=== PATIENT | female | born 1935 | race Caucasian/White ===

== ENCOUNTER 2019-03-30 15:08 | Emergency (ER) | payer OTHER ==
[~2019-03-30] VITALS: Ht 167.6 cm; Wt 74.8 kg
[2019-03-30 16:01] LABS: BASOPHILS ABSOLUTE AUTO 0.06 K/mm3 (0.00-0.23); BASOPHILS PERCENT AUTO 1 % (0-2); EOSINOPHILS ABSOLUTE AUTO 0.33 K/mm3 (0.00-0.68); EOSINOPHILS PERCENT AUTO 3 % (0-6); Hematocrit 39.2 % (33.0-51.0); Hemoglobin 11.2 g/dL (11.5-16.0); IMMATURE GRAN ABSOLUTE AUTO 0.04 K/mm3 (0.00-0.10); IMMATURE GRAN PERCENT AUTO 0 % (0-1); LYMPHOCYTES ABSOLUTE AUTO 1.27 K/mm3 (0.84-5.20); LYMPHOCYTES PERCENT AUTO 12 % (21-46); MONOCYTES ABSOLUTE AUTO 1.17 K/mm3 (0.16-1.47); MONOCYTES PERCENT AUTO 11 % (4-13); Mean Corpuscular HGB Conc 28.6 g/dL (31.5-36.5); Mean Corpuscular Volume 73 fL (80-100); Mean Platelet Volume 10.9 fL (9.1-12.4); NEUTROPHILS ABSOLUTE AUTO 7.62 K/mm3 (1.96-9.15); NEUTROPHILS PERCENT AUTO 73 % (41-73); Platelet Count 337 K/mm3 (150-400); RDW Coefficient Variation 20.4 % (11.7-14.2); RDW Standard Deviation 52.4 fL (35.1-46.3); Red Blood Cell Count 5.34 M/mm3 (3.80-5.20); White Blood Cell Count 10.49 K/mm3 (4.00-11.30)
[2019-03-30 16:18] LABS: Alanine Aminotransfer (ALT/SGP 13 U/L (12-78); Albumin, Blood 2.7 g/dL (3.4-5.0); Albumin/Globulin Ratio 0.7 (0.8-1.8); Alk Phos 92 U/L (50-136); Anion Gap 3 mmol/L (6-16); Aspartate Aminotrans (AST/SGOT 10 U/L (12-37); Bilirubin, Total 0.3 mg/dL (0.1-1.0); Blood Urea Nitrogen 11 mg/dL (8-24); Bun/Creatinine Ratio 14.4 (12.0-20.0); CO2, Blood 27 mmol/L (21-32); Calcium, Blood 8.4 mg/dL (8.5-10.1); Chloride, Blood 109 mmol/L (98-108); Creatinine, Blood 0.76 mg/dL (0.40-1.00); Globulin, Blood 4.1 g/dL (2.2-4.0); Glomerular Filtration Rate >60 (60-); Glucose, Blood 107 mg/dL (70-99); Potassium, Blood 3.3 mmol/L (3.5-5.5); Sodium, Blood 139 mmol/L (136-145); Total Protein, Blood 6.8 g/dL (6.4-8.2)
[2019-03-30 16:40] LABS: Influenza A Negative (NEGATIVE); Influenza B Negative (NEGATIVE)
[2019-03-30] MEDS ORDERED: Prednisone20 MG PO (17:44)
[2019-03-30] MEDS ORDERED: ALBU90OI INH (17:44)
== END 2019-03-30 18:24 | disposition home or self-care (01) ==
LOC: ER 15:08
PROVIDERS: Physician Assistant
DX: J20.8 Acute bronchitis due to other specified organisms (principal)
CPT/HCPCS: 71046; 80053; 85025; 87804; 94640; 96374; 99284-25; J2930

== ENCOUNTER 2019-05-14 20:47 | Emergency (ER) | payer OTHER ==
[~2019-05-14] VITALS: Ht 162.6 cm; Wt 90.7 kg
[~2019-05-14 20:47] MED LIST: ALBU90OI INH; Prednisone20 MG PO
[2019-05-14 22:27] LABS: BASOPHILS ABSOLUTE AUTO 0.08 K/mm3 (0.00-0.23); BASOPHILS PERCENT AUTO 1 % (0-2); EOSINOPHILS ABSOLUTE AUTO 0.39 K/mm3 (0.00-0.68); EOSINOPHILS PERCENT AUTO 4 % (0-6); Hematocrit 39.4 % (33.0-51.0); Hemoglobin 11.3 g/dL (11.5-16.0); IMMATURE GRAN ABSOLUTE AUTO 0.02 K/mm3 (0.00-0.10); IMMATURE GRAN PERCENT AUTO 0 % (0-1); LYMPHOCYTES ABSOLUTE AUTO 1.79 K/mm3 (0.84-5.20); LYMPHOCYTES PERCENT AUTO 17 % (21-46); MONOCYTES ABSOLUTE AUTO 1.06 K/mm3 (0.16-1.47); MONOCYTES PERCENT AUTO 10 % (4-13); Mean Corpuscular HGB 20.7 pg (26.0-34.0); Mean Corpuscular HGB Conc 28.7 g/dL (31.5-36.5); Mean Corpuscular Volume 72 fL (80-100); Mean Platelet Volume 10.6 fL (9.1-12.4); NEUTROPHILS ABSOLUTE AUTO 7.02 K/mm3 (1.96-9.15); NEUTROPHILS PERCENT AUTO 68 % (41-73); Platelet Count 437 K/mm3 (150-400); RDW Coefficient Variation 21.1 % (11.7-14.2); RDW Standard Deviation 53.7 fL (35.1-46.3); Red Blood Cell Count 5.45 M/mm3 (3.80-5.20); White Blood Cell Count 10.36 K/mm3 (4.00-11.30)
[2019-05-14 22:45] LABS: Alanine Aminotransfer (ALT/SGP 13 U/L (12-78); Albumin/Globulin Ratio 0.8 (0.8-1.8); Alk Phos 93 U/L (50-136); Anion Gap 5 mmol/L (6-16); Aspartate Aminotrans (AST/SGOT 21 U/L (12-37); Bilirubin, Total 0.3 mg/dL (0.1-1.0); Blood Urea Nitrogen 9 mg/dL (8-24); Bun/Creatinine Ratio 12.5 (12.0-20.0); CO2, Blood 27 mmol/L (21-32); Calcium, Blood 8.4 mg/dL (8.5-10.1); Chloride, Blood 110 mmol/L (98-108); Creatinine, Blood 0.72 mg/dL (0.40-1.00); Glomerular Filtration Rate >60 (60-); Glucose, Blood 93 mg/dL (70-99); Potassium, Blood 3.8 mmol/L (3.5-5.5); Sodium, Blood 142 mmol/L (136-145)
[2019-05-14] MEDS ORDERED: Keflex500 MG PO (23:40)
== END 2019-05-14 23:49 | disposition home or self-care (01) ==
LOC: ER 20:47
PROVIDERS: Physician Assistant
DX: L03.116 Cellulitis of left lower limb (principal); H40.9 Unspecified glaucoma; Z79.52 Long term (current) use of systemic steroids
CPT/HCPCS: 36415; 80053; 85025; 93971; 96365; 99284-25; J0696

== ENCOUNTER 2019-05-31 19:22 | Inpatient (IN) | payer OTHER ==
[~2019-05-31] VITALS: Ht 170.2 cm; Wt 82.4 kg
[~2019-05-31 19:22] MED LIST changes: +Keflex500 MG PO
[2019-05-31 19:48] LABS: Source, Urine Catheter
[2019-05-31 19:51] LABS: Blood, Urine 5+ (Neg); Glucose Qualitative, Urine Neg (Neg); Ketones, Urine 1+ (Neg); Leukocyte Esterase, Urine 2+ (Neg); Nitrite, Urine Neg (Neg); Protein, Urine 3+ (Neg); Specific Gravity, Urine 1.015 (1.003-1.022); Urobilinogen, Urine 1+ (Normal); pH, Urine 6.5 (5.0-8.0)
[2019-05-31 19:57] LABS: Appearance, Urine Hazy (Clear); Bilirubin, Urine 1+ (Neg); Color, Urine Amber (P-Yellow)
[2019-05-31 19:58] LABS: Red Blood Cells, Urine TNTC /hpf (0-2); White Blood Cells, Urine 25-50 /hpf (0-5)
[2019-05-31 19:59] LABS: Bacteria Many /hpf; Mucus Mod (0-Heavy); Squamous Epithelial Cells Few /hpf (Few)
[2019-05-31 20:21] LABS: BASOPHILS ABSOLUTE AUTO 0.09 K/mm3 (0.00-0.23); BASOPHILS PERCENT AUTO 1 % (0-2); EOSINOPHILS ABSOLUTE AUTO 0.12 K/mm3 (0.00-0.68); EOSINOPHILS PERCENT AUTO 1 % (0-6); Hematocrit 38.2 % (33.0-51.0); Hemoglobin 11.2 g/dL (11.5-16.0); IMMATURE GRAN ABSOLUTE AUTO 0.11 K/mm3 (0.00-0.10); IMMATURE GRAN PERCENT AUTO 1 % (0-1); LYMPHOCYTES ABSOLUTE AUTO 1.51 K/mm3 (0.84-5.20); LYMPHOCYTES PERCENT AUTO 8 % (21-46); MONOCYTES ABSOLUTE AUTO 1.92 K/mm3 (0.16-1.47); MONOCYTES PERCENT AUTO 11 % (4-13); Mean Corpuscular HGB 21.5 pg (26.0-34.0); Mean Corpuscular HGB Conc 29.3 g/dL (31.5-36.5); Mean Corpuscular Volume 73 fL (80-100); Mean Platelet Volume 11.5 fL (9.1-12.4); NEUTROPHILS ABSOLUTE AUTO 14.48 K/mm3 (1.96-9.15); NEUTROPHILS PERCENT AUTO 79 % (41-73); Platelet Count 351 K/mm3 (150-400); RDW Coefficient Variation 20.4 % (11.7-14.2); RDW Standard Deviation 52.1 fL (35.1-46.3); Red Blood Cell Count 5.22 M/mm3 (3.80-5.20); White Blood Cell Count 18.23 K/mm3 (4.00-11.30)
[2019-05-31 20:32] LABS: Alanine Aminotransfer (ALT/SGP 12 U/L (12-78); Albumin/Globulin Ratio 0.8 (0.8-1.8); Alk Phos 74 U/L (50-136); Anion Gap 4 mmol/L (6-16); Aspartate Aminotrans (AST/SGOT 11 U/L (12-37); Bilirubin, Total 0.8 mg/dL (0.1-1.0); Blood Urea Nitrogen 9 mg/dL (8-24); Bun/Creatinine Ratio 11.1 (12.0-20.0); CO2, Blood 28 mmol/L (21-32); Calcium, Blood 8.6 mg/dL (8.5-10.1); Chloride, Blood 109 mmol/L (98-108); Creatinine, Blood 0.81 mg/dL (0.40-1.00); Globulin, Blood 3.9 g/dL (2.2-4.0); Glomerular Filtration Rate >60 (60-); Glucose, Blood 104 mg/dL (70-99); Potassium, Blood 3.3 mmol/L (3.5-5.5); Sodium, Blood 141 mmol/L (136-145); Total Protein, Blood 6.9 g/dL (6.4-8.2)
[2019-05-31 20:33] LABS: International Normalized Ratio 1.07; Prothrombin Time Results 11.4 Sec (9.7-11.5)
[2019-06-01 02:22] LABS: Adenovirus Not Detected (NOT DETECT); Bordetella pertussis Not Detected (NOT DETECT); Chlamydophila pneumoniae Not Detected (NOT DETECT); Coronavirus 229E Not Detected (NOT DETECT); Coronavirus HKU1 Not Detected (NOT DETECT); Coronavirus NL63 Not Detected (NOT DETECT); Coronavirus OC43 Not Detected (NOT DETECT); Human Metapneumovirus Not Detected (NOT DETECT); Human Rhinovirus/Enterovirus Not Detected (NOT DETECT); Influenza A/2009-H1 Not Detected (NOT DETECT); Influenza A/H1 Not Detected (NOT DETECT); Influenza A/H3 Not Detected (NOT DETECT); Influenza B Not Detected (NOT DETECT); Mycoplasma pneumoniae Not Detected (NOT DETECT); Parainfluenza Virus 1 Not Detected (NOT DETECT); Parainfluenza Virus 2 Not Detected (NOT DETECT); Parainfluenza Virus 3 Not Detected (NOT DETECT); Parainfluenza Virus 4 Not Detected (NOT DETECT); Respiratory Syncytial Virus Not Detected (NOT DETECT)
--- NOTE | 2019-06-01 04:03 | NUR ---
GAME MANAGER SUMMARY PT NEW ADMIT FROM ER. ARRIVED TO UNIT AT 2355 VIA STRETCHER. PT INTRODUCED TO ROOM AND STAFF. PT ARRIVED TO UNIT WITH NS RUNNING WIDE OPEN FINISHING UP WITH THE SEPTIC PROTOCOL BOULUS. LUNG SOUNDS DIM AND CLEAR THOUGHTOUT LUNG RAM. 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 PT VERY [place]. INCONT OF BOWEL AND BLADDER. TRIES TO GET UP A FEW TIMES OUT OF BED BUT ONCE REDIRECTED, PT WILL LAY BACK DOWN. SLEPT WELL TONIGHT. BP STARTED TO TREND DOWN, HR TACHY. HOSPITALIST DR. MURPHY NOTIFIED. LR INFUSION AT 100ML/HR ORDERED. CALL LIGHT WITHIN REACH. BED IN LOWEST POSITION. WILL CONTINUE TO MONITOR.
[2019-06-01 05:26] LABS: BASOPHILS ABSOLUTE AUTO 0.07 K/mm3 (0.00-0.23); BASOPHILS PERCENT AUTO 0 % (0-2); EOSINOPHILS ABSOLUTE AUTO 0.16 K/mm3 (0.00-0.68); EOSINOPHILS PERCENT AUTO 1 % (0-6); Hematocrit 34.4 % (33.0-51.0); Hemoglobin 9.9 g/dL (11.5-16.0); IMMATURE GRAN ABSOLUTE AUTO 0.09 K/mm3 (0.00-0.10); IMMATURE GRAN PERCENT AUTO 1 % (0-1); LYMPHOCYTES ABSOLUTE AUTO 1.29 K/mm3 (0.84-5.20); LYMPHOCYTES PERCENT AUTO 8 % (21-46); MONOCYTES ABSOLUTE AUTO 1.62 K/mm3 (0.16-1.47); MONOCYTES PERCENT AUTO 10 % (4-13); Mean Corpuscular HGB 21.1 pg (26.0-34.0); Mean Corpuscular HGB Conc 28.8 g/dL (31.5-36.5); Mean Corpuscular Volume 73 fL (80-100); Mean Platelet Volume 10.8 fL (9.1-12.4); NEUTROPHILS ABSOLUTE AUTO 12.81 K/mm3 (1.96-9.15); NEUTROPHILS PERCENT AUTO 80 % (41-73); Platelet Count 302 K/mm3 (150-400); RDW Standard Deviation 52.9 fL (35.1-46.3); Red Blood Cell Count 4.69 M/mm3 (3.80-5.20); White Blood Cell Count 16.04 K/mm3 (4.00-11.30)
[2019-06-01 05:49] LABS: Anion Gap 4 mmol/L (6-16); Blood Urea Nitrogen 6 mg/dL (8-24); Bun/Creatinine Ratio 8.4 (12.0-20.0); CO2, Blood 24 mmol/L (21-32); Calcium, Blood 7.7 mg/dL (8.5-10.1); Chloride, Blood 113 mmol/L (98-108); Creatinine, Blood 0.72 mg/dL (0.40-1.00); Glomerular Filtration Rate >60 (60-); Glucose, Blood 100 mg/dL (70-99); Potassium, Blood 3.7 mmol/L (3.5-5.5); Sodium, Blood 141 mmol/L (136-145)
--- NOTE | 2019-06-01 17:12 | NUR ---
SHIFT SUMMARY PT AWAKE AT START OF SHIFT. ABLE TO SIT UP AND FEED HERSELF FOR BREAKFAST. PT IS PLEASANT, BUT [place]. DOES NOT ANS ALL QUESTIONS APPROPRIATELY, SOMETIMES FROM DEMENTIA AND SOMETIMES NOT HEARING CLEARLY. PT IS INCONTINENT OF BOWEL AND BLADDER. PT WAS ALSO ABLE TO WALK WITH PT/OT TO BTHRM AND AROUND HER RM WITH 1P ASSIST USING FWW. PT LATER ASSISTED TO CHAIR AT BS. IVF'S D/C'D AND IV SL. PT LATER PULLED IV OUT. WILL NEED TO REPLACE IV FOR ABX IN AM. PT'S SON CALLED SEVERAL TIMES TODAY TO CHK ON PT. UPDATES GIVEN. PT TO STAY AT LEAST ONE MORE DAY FOR IV ABX AND CX'S TO RETURN TO DETERMINE D/C ABX'S. DR GOMEZ TO CALL SON TOMORROW WITH PLAN OF CARE, AFTER CX'S BACK. PT TOOK A NAP AFTER BREAKFAST AND WOKE CONFUSED, THINKING IT WAS MIDNIGHT. PT'S SON REPORTED THAT IS NORMAL FOR HER AT TIMES. PT SITTING TO CHAIR AT BS AT THIS TIME. NO C/O. CALL LT IN REACH.
[2019-06-02 04:34] LABS: Hematocrit 33.5 % (33.0-51.0); Hemoglobin 9.6 g/dL (11.5-16.0); Mean Corpuscular HGB 20.7 pg (26.0-34.0); Mean Corpuscular HGB Conc 28.7 g/dL (31.5-36.5); Mean Corpuscular Volume 72 fL (80-100); Mean Platelet Volume 10.9 fL (9.1-12.4); Platelet Count 283 K/mm3 (150-400); RDW Coefficient Variation 20.1 % (11.7-14.2); RDW Standard Deviation 51.7 fL (35.1-46.3); Red Blood Cell Count 4.63 M/mm3 (3.80-5.20); White Blood Cell Count 12.28 K/mm3 (4.00-11.30)
[2019-06-02 04:45] LABS: Albumin, Blood 2.2 g/dL (3.4-5.0); Anion Gap 6 mmol/L (6-16); Blood Urea Nitrogen 6 mg/dL (8-24); Bun/Creatinine Ratio 8.8 (12.0-20.0); CO2, Blood 24 mmol/L (21-32); Calcium, Blood 7.8 mg/dL (8.5-10.1); Chloride, Blood 113 mmol/L (98-108); Creatinine, Blood 0.68 mg/dL (0.40-1.00); Glomerular Filtration Rate >60 (60-); Glucose, Blood 87 mg/dL (70-99); Phosphorus, Blood 1.9 mg/dL (2.5-4.9); Potassium, Blood 3.5 mmol/L (3.5-5.5); Sodium, Blood 143 mmol/L (136-145)
--- NOTE | 2019-06-02 06:14 | NUR ---
06/02/19 0600 PT AWAKENED FOR ROUNDS. INCONTINENT OF URINE AND SMEAR OF BROWN BM. CIARA-CARE GIVEN AND REPOSITIONED ON BACK WITH PILLOWS TO ELEVATE SWOLLEN FEET. VITALS STABLE. NO COMPLAINTS EXCEPT FOR WAKING HER UP FOR ROUNDS.
--- NOTE | 2019-06-02 15:14 | NUR ---
Pt is resting in bed upon arrival. Pt is A&OX2 and denies pain. Pt denies anxiety and dyspnea. Pt is pleasantly confused. Offered gentle voice and theapeutic listening. Called and spoke with Pt's son Thaddeus. Updated Thaddeus on plan of care. Plan for Pt's to discharge home with home health. Thaddeus is agreeable. Engaged in therapeutic discussion regarding Advanced Care Planning. Educated Thaddeus on disease process and the importance of devoloping multiple plans with Pt's PCP as the disease process takes it's coarse. Discussed life sustaining measures with Chris and the importance of considering goals and values for life sustaining measures. Offered therapeutic listening and answered questions. No other concerns reported at this time. Thaddeus expressess appreciation of call. Called and spoke with [employer] Coordinator Joy. Discussed case and plan. Palliative Care will remain available.
--- NOTE | 2019-06-02 17:18 | NUR ---
Shift Summary A/Oxself, pleasantly confused. Up in chair for most meals, no c/o pain. Left lower extremity cellulitis seems to be improving, only mild redness and trace swelling noted. 1P c FWW and gait, follows directions well, though NOATAK. Plan is to discharge tomorrow home with HH. Patient has had 2 unformed, mucosy brown stools this shift. Rocephin was just started 2 days ago. No other concerns. Will continue to monitor.
[2019-06-03 04:29] LABS: Hematocrit 33.4 % (33.0-51.0); Hemoglobin 9.8 g/dL (11.5-16.0); Mean Corpuscular HGB 21.3 pg (26.0-34.0); Mean Corpuscular HGB Conc 29.3 g/dL (31.5-36.5); Mean Corpuscular Volume 73 fL (80-100); Mean Platelet Volume 10.8 fL (9.1-12.4); Platelet Count 326 K/mm3 (150-400); RDW Standard Deviation 51.6 fL (35.1-46.3); White Blood Cell Count 10.72 K/mm3 (4.00-11.30)
[2019-06-03 04:49] LABS: Albumin, Blood 2.2 g/dL (3.4-5.0); Anion Gap 4 mmol/L (6-16); Blood Urea Nitrogen 6 mg/dL (8-24); CO2, Blood 28 mmol/L (21-32); Chloride, Blood 111 mmol/L (98-108); Creatinine, Blood 0.67 mg/dL (0.40-1.00); Glomerular Filtration Rate >60 (60-); Glucose, Blood 99 mg/dL (70-99); Phosphorus, Blood 2.5 mg/dL (2.5-4.9); Potassium, Blood 3.6 mmol/L (3.5-5.5); Sodium, Blood 143 mmol/L (136-145)
--- NOTE | 2019-06-03 04:58 | NUR ---
SHIFT SUMMARY PT HAS BEEN PLEASANTLY CONFUSED T/O SHIFT, NO ACUTE CHANGES, NO C/O ANY KIND, PT SLEEPING AT THIS TIME, BLE ELEVATED, CALL LIGHT IN REACH, BED ALARM ACTIVE, WILL CONT TO MONITOR UNTIL REPORT GIVEN TO DAY RN.
[2019-06-03] MEDS ORDERED: ACET325 PO (09:48)
[2019-06-03] MEDS ORDERED: CEFU500T30 PO (09:49)
[2019-06-03] MEDS ORDERED: Vsl#3 Capsule1 EACH PO (09:49)
--- NOTE | 2019-06-03 11:06 | NUR ---
Discharge Summary A/O to self, remains pleasantly confused. Patient discharge to home with HH, transported home via personal vehicle, escorted by w/c by this RN. Discharge paperwork reviewed with patient and son (Thaddeus) at car side. Personal belongings sent home. IV removed. Meds faxed to preferred pharmacy.
== END 2019-06-03 11:55 | disposition home health service (06) | DRG 871 ==
LOC: ER 19:22 → MEDS 23:56 → ENPENDDIS 06-03 09:54 → MEDS 06-03 11:55
PROVIDERS: Internal Medicine; Physician Assistant; ADMIT Family Medicine
DX: A41.51 Sepsis due to Escherichia coli [E. coli] (principal); G92 Toxic encephalopathy; N39.0 Urinary tract infection, site not specified; L03.116 Cellulitis of left lower limb; D63.8 Anemia in other chronic diseases classified elsewhere; E87.6 Hypokalemia; F03.90 Unspecified dementia, unspecified severity, without behavioral disturbance, psychotic disturbance, mood disturbance, and anxiety; H40.9 Unspecified glaucoma; E83.39 Other disorders of phosphorus metabolism
CPT/HCPCS: 0099U; 36415; 70450; 71046; 80048; 80053; 80069; 81001; 83605; 85025; 85027; 85610; 87040; 87077; 87086; 87186; 93005; 93010; 93970; 96361; 96365; 97116; 97162; 97166; 97535; 99285-25; J0696; J1650; J3480; J7030; J7060; J7120

== ENCOUNTER 2020-02-03 07:37 | Inpatient (IN) | payer OTHER ==
[~2020-02-03] VITALS: Ht 165.1 cm; Wt 72.1 kg
[~2020-02-03 07:37] MED LIST changes: +ACET325 PO; +CEFU500T30 PO; +Vsl#3 Capsule1 EACH PO
[2020-02-03 08:14] LABS: Source, Urine Clean Catch
[2020-02-03 08:14] LABS: BASOPHILS ABSOLUTE AUTO 0.03 K/mm3 (0.00-0.23); BASOPHILS PERCENT AUTO 0 % (0-2); EOSINOPHILS ABSOLUTE AUTO 0.03 K/mm3 (0.00-0.68); EOSINOPHILS PERCENT AUTO 0 % (0-6); Hematocrit 47.9 % (33.0-51.0); Hemoglobin 14.4 g/dL (11.5-16.0); IMMATURE GRAN ABSOLUTE AUTO 0.08 K/mm3 (0.00-0.10); IMMATURE GRAN PERCENT AUTO 1 % (0-1); LYMPHOCYTES ABSOLUTE AUTO 0.43 K/mm3 (0.84-5.20); LYMPHOCYTES PERCENT AUTO 3 % (21-46); MONOCYTES ABSOLUTE AUTO 0.41 K/mm3 (0.16-1.47); MONOCYTES PERCENT AUTO 3 % (4-13); Mean Corpuscular HGB 24.3 pg (26.0-34.0); Mean Corpuscular HGB Conc 30.1 g/dL (31.5-36.5); Mean Corpuscular Volume 81 fL (80-100); NEUTROPHILS ABSOLUTE AUTO 13.12 K/mm3 (1.96-9.15); NEUTROPHILS PERCENT AUTO 93 % (41-73); Platelet Count 257 K/mm3 (150-400); RDW Standard Deviation 56.8 fL (35.1-46.3); Red Blood Cell Count 5.93 M/mm3 (3.80-5.20)
[2020-02-03 08:18] LABS: Mean Platelet Volume 10.8 fL (9.1-12.4)
[2020-02-03 08:18] LABS: Bilirubin, Urine Neg (Neg); Blood, Urine 5+ (Neg); Glucose Qualitative, Urine Neg (Neg); Ketones, Urine 3+ (Neg); Leukocyte Esterase, Urine 3+ (Neg); Nitrite, Urine Pos (Neg); Protein, Urine 3+ (Neg); Urobilinogen, Urine 1+ (Normal); pH, Urine 6.5 (5.0-8.0)
[2020-02-03 08:21] LABS: Appearance, Urine Cloudy (Clear); Color, Urine Yellow (P-Yellow)
[2020-02-03 08:27] LABS: Bacteria Many /hpf; Red Blood Cells, Urine TNTC /hpf (0-2); Squamous Epithelial Cells Rare /hpf (Few); White Blood Cells, Urine 25-50 /hpf (0-5)
[2020-02-03 08:30] LABS: Alanine Aminotransfer (ALT/SGP 13 U/L (12-78); Albumin, Blood 3.3 g/dL (3.4-5.0); Albumin/Globulin Ratio 0.7 (0.8-1.8); Alk Phos 106 U/L (50-136); Anion Gap 5 mmol/L (6-16); Aspartate Aminotrans (AST/SGOT 20 U/L (12-37); Bilirubin, Total 0.5 mg/dL (0.1-1.0); Blood Urea Nitrogen 13 mg/dL (8-24); Bun/Creatinine Ratio 17.6 (12.0-20.0); CO2, Blood 29 mmol/L (21-32); Calcium, Blood 9.3 mg/dL (8.5-10.1); Chloride, Blood 106 mmol/L (98-108); Creatinine, Blood 0.74 mg/dL (0.40-1.00); Globulin, Blood 4.5 g/dL (2.2-4.0); Glomerular Filtration Rate >60 (60-); Glucose, Blood 166 mg/dL (70-99); Potassium, Blood 3.7 mmol/L (3.5-5.5); Sodium, Blood 140 mmol/L (136-145); Total Protein, Blood 7.8 g/dL (6.4-8.2)
--- NOTE | 2020-02-03 12:09 | NUR ---
CALLED AND RECIEVED REPORT FROM JOSE J FREY RN, AT 1150. PATIENT TO BE TRANFERED TO ROOM 324.
--- NOTE | 2020-02-03 13:54 | NUR ---
PATIENT ADMITTED TO MEDICAL FLOOR AT 1220. VITALS STABLE. PATIENT VERY [place]. POOR HISTORIAN HOWEVER DID STATE THAT SHE HAS TROUBLE SWALLOWING WHEN I ASKED HER. PATIENT WITNESSED ATTEMPTING TO EAT MEAL AND SHE WAS CHOKING ON THE SMALL AMOUNT SHE ATE. ALSO NOTICE REDNESS BENEATH HER BREASTS AND IN HER GROIN AND ABDOMINAL FOLDS. DR MONTOYA CALLED AND UPDATED ON THESE CONCERNS. PATIENT PLACED NPO PENDING SPEECH EVAL AND NYSTATIN POWDER ORDERED FOR REDNESS. PATIENT IS PLEASANT AND COOPERATIVE. SITUATED IN BED WITH CALL LIGHT IN REACH. WILL CONTINUE TO MONITOR AND PROVIDE CARE NEEDED.
[2020-02-04 05:13] LABS: BASOPHILS ABSOLUTE AUTO 0.05 K/mm3 (0.00-0.23); BASOPHILS PERCENT AUTO 0 % (0-2); EOSINOPHILS ABSOLUTE AUTO 0.13 K/mm3 (0.00-0.68); EOSINOPHILS PERCENT AUTO 1 % (0-6); Hematocrit 40.4 % (33.0-51.0); IMMATURE GRAN ABSOLUTE AUTO 0.04 K/mm3 (0.00-0.10); IMMATURE GRAN PERCENT AUTO 0 % (0-1); LYMPHOCYTES ABSOLUTE AUTO 1.18 K/mm3 (0.84-5.20); LYMPHOCYTES PERCENT AUTO 10 % (21-46); MONOCYTES ABSOLUTE AUTO 1.16 K/mm3 (0.16-1.47); MONOCYTES PERCENT AUTO 10 % (4-13); Mean Corpuscular HGB 24.4 pg (26.0-34.0); Mean Corpuscular HGB Conc 29.7 g/dL (31.5-36.5); Mean Corpuscular Volume 82 fL (80-100); Mean Platelet Volume 11.6 fL (9.1-12.4); NEUTROPHILS ABSOLUTE AUTO 9.17 K/mm3 (1.96-9.15); NEUTROPHILS PERCENT AUTO 78 % (41-73); Platelet Count 194 K/mm3 (150-400); RDW Coefficient Variation 19.4 % (11.7-14.2); RDW Standard Deviation 57.9 fL (35.1-46.3); Red Blood Cell Count 4.91 M/mm3 (3.80-5.20); White Blood Cell Count 11.73 K/mm3 (4.00-11.30)
[2020-02-04 05:28] LABS: Anion Gap 6 mmol/L (6-16); Blood Urea Nitrogen 8 mg/dL (8-24); Bun/Creatinine Ratio 13.3 (12.0-20.0); CO2, Blood 28 mmol/L (21-32); Calcium, Blood 8.1 mg/dL (8.5-10.1); Chloride, Blood 112 mmol/L (98-108); Glomerular Filtration Rate >60 (60-); Glucose, Blood 82 mg/dL (70-99); Potassium, Blood 3.4 mmol/L (3.5-5.5); Sodium, Blood 146 mmol/L (136-145)
--- NOTE | 2020-02-04 06:12 | NUR ---
SHIFT SUMMARY LYING IN LOW FOWLERS WITH EYES CLOSED, HAS NOT RESTED WELL D/T A/C PIV BEEPING DISTAL OCCLUSION EACH TIME SHE MOVES IN THE BED AND BENDS HER ARM. MILD CONFUSION NOTED WHEN WAKING UP, BUT IS EASILY REORIENTED. NO ACUTE CHANGES NOTED THROUGHOUT SHIFT. DENIES PAIN, DISCOMFORT, OR FURTHER NEEDS AT THIS ITME. SAFETY MEASURES IN PLACE. WILL CONTINUE TO MONITOR AND GIVE HAND OFF TO ONCOMING SHIFT USING SBAR.
--- NOTE | 2020-02-04 15:44 | NUR ---
PATIENT HAS BEEN SLEEPY TODAY AND SLEEPING THE MAJORITY OF THE SHIFT. CONTINUES ON IV FLUIDS AND IV ABX WITHOUT S/SX OF ADVERSE REACTIONS NOTED OR REPORTED. VITALS HAVE BEEN STABLE AND WNL. PATIENT REMAINS NPO PENDING SPEECH EVAL, APPARENTLY THAT WILL TAKE PLACE TOMMORROW IT APPEARS ST IS NOT HERE TODAY. PATIENT VERY [place] HOWEVER PLEASANT AND COOPERATIVE WITH STAFF. PATIENT CLEANSED THOROUGHLY TO HER GROIN AREA AND BENEATH BREASTS AND NYSTATIN POWDER APPLIED. SKIN ALREADY APPEARS IMPROVED FROM YESTERDAY UPON ADMIT. FOAM DRESSING PLACED TO COCCYX- DIMPLE-LIKE SCAB-APPEARING AREA NOTED. WILL CONTINUE TO MONITOR AND PROVIDE CARE NEEDED.
--- NOTE | 2020-02-05 06:07 | NUR ---
SUMMARY PT HAD NO ISSUES NOTED. PT IS PLESANTLY CONFUSED. PT HAS BEEN SLEEPING T/O SHIFT. PT CURRENTLY SLEEPING AND BREATHING EASY. CALL LIGHT IN REACH AND BED ALARM ON.
--- NOTE | 2020-02-05 17:05 | NUR ---
SHIFT SUMMARY- PT IS ALERT, AND COOPERATIVE. SHE IS FORGETFUL AND HARD OF HEARING. SHE IS RECIEVING IV FLUIDS. SHE WAS EVALUATED BY ST TODAY AND WAS ADVANCED TO A MECHANICAL SOFT DIET WHICH SHE IS TOLERATING WELL. PT AND OT WORKED WITH HER TODAY AND SHE TOLERATED WELL. SHE SLEPT INTERMITENTLY THROUGHOUT THIS SHIFT. SHE WAS USING THE BEDSIDE CAMMODE TODAY. HER BED IS IN THE LOW POSITION AND HER CALL LIGHT IS WITHIN REACH
--- NOTE | 2020-02-06 04:43 | NUR ---
SHIFT SUMMARY ADMITTED FOR SEPSIS/CHRONIC UTI'S. FULL CODE. SHE LIVES WITH HER SON. SPEECH EVAL: MECH SOFT DIET, NO STRAWS, THIN LIQUIDS OK. SHE IS [place]. MEDS MAY BE GIVEN WHOLE IN APPLESAUCE. NS IS INFUSING @ 100 ML/HR. IV ANTIBIOTICS ARE SCHEDULED. MEALS NEED TO BE SUPERVISED.
[2020-02-06 05:16] LABS: BASOPHILS ABSOLUTE AUTO 0.04 K/mm3 (0.00-0.23); BASOPHILS PERCENT AUTO 1 % (0-2); EOSINOPHILS ABSOLUTE AUTO 0.25 K/mm3 (0.00-0.68); EOSINOPHILS PERCENT AUTO 3 % (0-6); Hematocrit 40.2 % (33.0-51.0); IMMATURE GRAN ABSOLUTE AUTO 0.02 K/mm3 (0.00-0.10); IMMATURE GRAN PERCENT AUTO 0 % (0-1); LYMPHOCYTES ABSOLUTE AUTO 0.99 K/mm3 (0.84-5.20); LYMPHOCYTES PERCENT AUTO 12 % (21-46); MONOCYTES ABSOLUTE AUTO 0.85 K/mm3 (0.16-1.47); MONOCYTES PERCENT AUTO 10 % (4-13); Mean Corpuscular HGB 24.2 pg (26.0-34.0); Mean Corpuscular HGB Conc 29.9 g/dL (31.5-36.5); Mean Corpuscular Volume 81 fL (80-100); Mean Platelet Volume 10.9 fL (9.1-12.4); NEUTROPHILS ABSOLUTE AUTO 6.11 K/mm3 (1.96-9.15); NEUTROPHILS PERCENT AUTO 74 % (41-73); Platelet Count 217 K/mm3 (150-400); RDW Coefficient Variation 18.7 % (11.7-14.2); RDW Standard Deviation 55.5 fL (35.1-46.3); Red Blood Cell Count 4.95 M/mm3 (3.80-5.20); White Blood Cell Count 8.26 K/mm3 (4.00-11.30)
[2020-02-06 05:40] LABS: Anion Gap 5 mmol/L (6-16); Blood Urea Nitrogen 4 mg/dL (8-24); CO2, Blood 26 mmol/L (21-32); Calcium, Blood 8.1 mg/dL (8.5-10.1); Chloride, Blood 112 mmol/L (98-108); Glomerular Filtration Rate >60 (60-); Glucose, Blood 85 mg/dL (70-99); Potassium, Blood 3.3 mmol/L (3.5-5.5); Sodium, Blood 143 mmol/L (136-145)
--- NOTE | 2020-02-06 16:33 | NUR ---
SHIFT SUMMARY- PT IS ALERT AND PLESANT, SHE IS [place] AND HAS SOME CONFUSION. SHE IS EATING AND DRINKING WELL. HER IV FLUIDS WERE DISCONTINUED. HER POTASSIUM WAS LOW AND ORAL REPLACMENT GIVEN. SHE WORKED WITH PT AND OT TODAY AND TOLERATED WELL. ST VISITED AND FOLLOWED UP ON HER SWALLOWING. SHE IS UP TO THE CHAIR FOR MEALS. SHE HAS A MEPLEX ON HER BOTTOM. SHE IS RECIEVING IV ABX. SHE HAS SLEPT INTERMITENTLY THROUGHOUT THIS SHIFT. HER BED IS IN THE LOW POSITION AND CALL LIGHT WITHIN REACH.
--- NOTE | 2020-02-07 04:40 | NUR ---
SHIFT SUMMARY ADMITTED FOR SEPSIS/CHRONIC UTI. FULL CODE. HOPEFUL FOR DC TODAY W/HH. SHE IS PLEASANTLY CONFUSED, HX OF DEMENTIA. SHE IS INCONTINENT, ATTENDS IN PLACE. SHE LIVES WITH HER SON. MECH SOFT DIET, NO STRAWS, THIN LIQUIDS OK. RX TAKEN WHOLE W/APPLESAUCE. IV ANTIBIOTICS ARE SCHEDULED. SHE HAS LLL EDEMA 1+ TO 2+. HX OF ANEMIA AND IRON DEFICIENT ANEMIA. SKIN IS FRAGILE.
[2020-02-07 06:01] LABS: Albumin, Blood 2.3 g/dL (3.4-5.0); Anion Gap 4 mmol/L (6-16); Blood Urea Nitrogen 4 mg/dL (8-24); Bun/Creatinine Ratio 9.6 (12.0-20.0); CO2, Blood 27 mmol/L (21-32); Calcium, Blood 8.4 mg/dL (8.5-10.1); Chloride, Blood 110 mmol/L (98-108); Creatinine, Blood 0.42 mg/dL (0.40-1.00); Glomerular Filtration Rate >60 (60-); Glucose, Blood 88 mg/dL (70-99); Phosphorus, Blood 2.4 mg/dL (2.5-4.9); Potassium, Blood 3.5 mmol/L (3.5-5.5); Sodium, Blood 141 mmol/L (136-145)
[2020-02-07] MEDS ORDERED: CEFU500T30 PO (12:48)
[2020-02-07] MEDS ORDERED: ACIDOPHILUS1 EAC1 PO (12:55)
--- NOTE | 2020-02-07 15:50 | NUR ---
SHIFT SUMMARY PT A/O X1 AND PLEASANT. PT RESTING COMFORTABLY FOR THE MAJORITY OF THE DAY. 1-2 ASSIST WHEN UP. DISCHARGED HOME WITH HOME HEALTH. SON CAME TO SPRING INTERN PATIENT.
== END 2020-02-07 15:43 | disposition home health service (06) | DRG 871 ==
LOC: ER 07:37 → MEDS 10:06
PROVIDERS: Emergency Medicine; Family Medicine; Internal Medicine; Nurse Practitioner Acute Care; ADMIT Internal Medicine
DX: A41.51 Sepsis due to Escherichia coli [E. coli] (principal); G93.41 Metabolic encephalopathy; N10 Acute pyelonephritis; D50.9 Iron deficiency anemia, unspecified; D63.8 Anemia in other chronic diseases classified elsewhere; E83.39 Other disorders of phosphorus metabolism; E87.6 Hypokalemia; F03.90 Unspecified dementia, unspecified severity, without behavioral disturbance, psychotic disturbance, mood disturbance, and anxiety; R65.20 Severe sepsis without septic shock; Z20.828 Contact with and (suspected) exposure to other viral communicable diseases; H40.9 Unspecified glaucoma; H91.90 Unspecified hearing loss, unspecified ear; R22.42 Localized swelling, mass and lump, left lower limb
CPT/HCPCS: 36415; 80048; 80053; 80069; 81001; 83605; 83690; 83735; 83880; 85025; 87040; 87077; 87086; 87186; 92526; 92610; 93971; 96365; 96375; 97110; 97116; 97161; 97165; 97530; 97535; 99285-25; A9270; J0696; J1650; J2405; J7030; P9612; Q2038

== ENCOUNTER 2020-04-30 15:45 | Emergency (ER) | payer MEDICARE ==
[~2020-04-30] VITALS: Ht 162.6 cm; Wt 68.0 kg
[~2020-04-30 15:45] MED LIST changes: +ACIDOPHILUS1 EAC1 PO
[2020-04-30 17:03] LABS: BASOPHILS ABSOLUTE AUTO 0.06 K/mm3 (0.00-0.23); BASOPHILS PERCENT AUTO 1 % (0-2); EOSINOPHILS ABSOLUTE AUTO 0.17 K/mm3 (0.00-0.68); EOSINOPHILS PERCENT AUTO 2 % (0-6); Hematocrit 44.1 % (33.0-51.0); Hemoglobin 13.9 g/dL (11.5-16.0); IMMATURE GRAN ABSOLUTE AUTO 0.02 K/mm3 (0.00-0.10); IMMATURE GRAN PERCENT AUTO 0 % (0-1); LYMPHOCYTES ABSOLUTE AUTO 1.32 K/mm3 (0.84-5.20); LYMPHOCYTES PERCENT AUTO 16 % (21-46); MONOCYTES ABSOLUTE AUTO 0.76 K/mm3 (0.16-1.47); MONOCYTES PERCENT AUTO 9 % (4-13); Mean Corpuscular HGB 26.8 pg (26.0-34.0); Mean Corpuscular HGB Conc 31.5 g/dL (31.5-36.5); Mean Corpuscular Volume 85 fL (80-100); Mean Platelet Volume 11.3 fL (9.1-12.4); NEUTROPHILS PERCENT AUTO 72 % (41-73); Platelet Count 243 K/mm3 (150-400); RDW Coefficient Variation 17.1 % (11.7-14.2); RDW Standard Deviation 53.7 fL (35.1-46.3); Red Blood Cell Count 5.18 M/mm3 (3.80-5.20); White Blood Cell Count 8.13 K/mm3 (4.00-11.30)
[2020-04-30 17:14] LABS: International Normalized Ratio 0.98; Prothrombin Time Results 10.5 Sec (9.7-11.5)
[2020-04-30 17:36] LABS: Alanine Aminotransfer (ALT/SGP 16 U/L (12-78); Albumin, Blood 3.2 g/dL (3.4-5.0); Albumin/Globulin Ratio 0.9 (0.8-1.8); Alk Phos 88 U/L (50-136); Anion Gap 0 mmol/L (6-16); Aspartate Aminotrans (AST/SGOT 14 U/L (12-37); Bilirubin, Total 0.3 mg/dL (0.1-1.0); Blood Urea Nitrogen 10 mg/dL (8-24); Bun/Creatinine Ratio 14.4 (12.0-20.0); CO2, Blood 31 mmol/L (21-32); Calcium, Blood 8.8 mg/dL (8.5-10.1); Chloride, Blood 109 mmol/L (98-108); Creatinine, Blood 0.69 mg/dL (0.40-1.00); Globulin, Blood 3.5 g/dL (2.2-4.0); Glomerular Filtration Rate >60 (60-); Glucose, Blood 87 mg/dL (70-99); Potassium, Blood 4.3 mmol/L (3.5-5.5); Sodium, Blood 140 mmol/L (136-145); Total Protein, Blood 6.7 g/dL (6.4-8.2)
[2020-04-30 20:12] LABS: Source, Urine Voided
[2020-04-30 20:18] LABS: Appearance, Urine Cloudy (Clear); Bilirubin, Urine Neg (Neg); Blood, Urine 5+ (Neg); Color, Urine Yellow (P-Yellow); Glucose Qualitative, Urine Neg (Neg); Ketones, Urine Neg (Neg); Leukocyte Esterase, Urine 3+ (Neg); Nitrite, Urine Neg (Neg); Protein, Urine 2+ (Neg); Specific Gravity, Urine 1.005 (1.003-1.022); Urobilinogen, Urine NORM (Normal)
[2020-04-30 20:24] LABS: White Blood Cells, Urine TNTC /hpf (0-5)
[2020-04-30 20:25] LABS: Amorphous Mod (0-Heavy); Bacteria Many /hpf; Red Blood Cells, Urine 0-2 /hpf (0-2); Squamous Epithelial Cells Few /hpf (Few)
[2020-04-30] MEDS ORDERED: CEPH500 PO (20:39)
== END 2020-04-30 21:51 | disposition home or self-care (01) ==
LOC: ER 15:45
PROVIDERS: Emergency Medicine; Physician Assistant
DX: R41.0 Disorientation, unspecified (principal); N39.0 Urinary tract infection, site not specified
CPT/HCPCS: 36415; 51701; 70450; 80053; 81001; 82947; 85025; 85610; 87086; 93005; 93010; 96365-59; 99285-25; J0696

== ENCOUNTER 2020-05-30 15:55 | Emergency (ER) | payer MEDICARE ==
[~2020-05-30] VITALS: Ht 170.2 cm; Wt 86.5 kg
[~2020-05-30 15:55] MED LIST changes: +CEPH500 PO
[2020-05-30 16:30] LABS: BASOPHILS ABSOLUTE AUTO 0.05 K/mm3 (0.00-0.23); BASOPHILS PERCENT AUTO 1 % (0-2); EOSINOPHILS PERCENT AUTO 2 % (0-6); Hematocrit 48.9 % (33.0-51.0); Hemoglobin 15.7 g/dL (11.5-16.0); IMMATURE GRAN ABSOLUTE AUTO 0.02 K/mm3 (0.00-0.10); IMMATURE GRAN PERCENT AUTO 0 % (0-1); LYMPHOCYTES ABSOLUTE AUTO 0.89 K/mm3 (0.84-5.20); LYMPHOCYTES PERCENT AUTO 14 % (21-46); MONOCYTES ABSOLUTE AUTO 0.46 K/mm3 (0.16-1.47); MONOCYTES PERCENT AUTO 7 % (4-13); Mean Corpuscular HGB 27.3 pg (26.0-34.0); Mean Corpuscular HGB Conc 32.1 g/dL (31.5-36.5); Mean Corpuscular Volume 85 fL (80-100); Mean Platelet Volume 11.4 fL (9.1-12.4); NEUTROPHILS ABSOLUTE AUTO 4.79 K/mm3 (1.96-9.15); NEUTROPHILS PERCENT AUTO 76 % (41-73); Platelet Count 276 K/mm3 (150-400); RDW Coefficient Variation 16.4 % (11.7-14.2); RDW Standard Deviation 51.5 fL (35.1-46.3); Red Blood Cell Count 5.75 M/mm3 (3.80-5.20); White Blood Cell Count 6.31 K/mm3 (4.00-11.30)
[2020-05-30 16:55] LABS: Alanine Aminotransfer (ALT/SGP 18 U/L (12-78); Albumin, Blood 3.6 g/dL (3.4-5.0); Albumin/Globulin Ratio 0.9 (0.8-1.8); Alk Phos 103 U/L (50-136); Anion Gap 4 mmol/L (6-16); Aspartate Aminotrans (AST/SGOT 18 U/L (12-37); Bilirubin, Total 0.7 mg/dL (0.1-1.0); Blood Urea Nitrogen 11 mg/dL (8-24); Bun/Creatinine Ratio 15.7 (12.0-20.0); CO2, Blood 31 mmol/L (21-32); Calcium, Blood 9.5 mg/dL (8.5-10.1); Chloride, Blood 107 mmol/L (98-108); Globulin, Blood 4.2 g/dL (2.2-4.0); Glomerular Filtration Rate >60 (60-); Glucose, Blood 105 mg/dL (70-99); Sodium, Blood 142 mmol/L (136-145); Total Protein, Blood 7.8 g/dL (6.4-8.2)
[2020-05-30 18:45] LABS: International Normalized Ratio 0.97; Prothrombin Time Results 10.4 Sec (9.7-11.5)
== END 2020-05-30 20:42 | disposition short-term general hospital (02) ==
LOC: ER 15:55
PROVIDERS: Emergency Medicine; Physician Assistant
DX: K92.0 Hematemesis (principal); Z79.899 Other long term (current) drug therapy
CPT/HCPCS: 36415; 80053; 85025; 85610; 85730; 86850; 86900; 86901; 93005; 93010; 96374; 96375; 99285-25; C9113; J2405; J2765

== ENCOUNTER 2020-11-25 19:35 | Emergency (ER) | payer MEDICARE ==
[~2020-11-25] VITALS: Ht 165.1 cm; Wt 74.8 kg
[2020-11-25] MEDS ORDERED: PRILOSEC OTC20 MG PO (19:54)
[2020-11-25 21:39] LABS: BASOPHILS ABSOLUTE AUTO 0.07 K/mm3 (0.00-0.23); BASOPHILS PERCENT AUTO 1 % (0-2); EOSINOPHILS ABSOLUTE AUTO 0.13 K/mm3 (0.00-0.68); EOSINOPHILS PERCENT AUTO 1 % (0-6); Hematocrit 51.5 % (33.0-51.0); IMMATURE GRAN ABSOLUTE AUTO 0.06 K/mm3 (0.00-0.10); IMMATURE GRAN PERCENT AUTO 1 % (0-1); LYMPHOCYTES PERCENT AUTO 11 % (21-46); MONOCYTES ABSOLUTE AUTO 1.09 K/mm3 (0.16-1.47); MONOCYTES PERCENT AUTO 9 % (4-13); Mean Corpuscular HGB 28.3 pg (26.0-34.0); Mean Corpuscular Volume 86 fL (80-100); NEUTROPHILS ABSOLUTE AUTO 9.84 K/mm3 (1.96-9.15); NEUTROPHILS PERCENT AUTO 78 % (41-73); RDW Coefficient Variation 14.5 % (11.7-14.2); RDW Standard Deviation 45.3 fL (35.1-46.3); Red Blood Cell Count 6.01 M/mm3 (3.80-5.20); White Blood Cell Count 12.59 K/mm3 (4.00-11.30)
[2020-11-25 21:42] LABS: Mean Platelet Volume 11.5 fL (9.1-12.4); Platelet Count 225 K/mm3 (150-400)
[2020-11-25 21:48] LABS: Anion Gap 7 mmol/L (6-16); Blood Urea Nitrogen 12 mg/dL (8-24); CO2, Blood 27 mmol/L (21-32); Calcium, Blood 9.5 mg/dL (8.5-10.1); Chloride, Blood 108 mmol/L (98-108); Glomerular Filtration Rate >60 (60-); Glucose, Blood 93 mg/dL (70-99); Sodium, Blood 142 mmol/L (136-145)
[2020-11-25 21:51] LABS: Source, Urine Catheter
[2020-11-25 22:00] LABS: Bilirubin, Urine Neg (Neg); Blood, Urine 4+ (Neg); Glucose Qualitative, Urine Neg (Neg); Ketones, Urine 3+ (Neg); Leukocyte Esterase, Urine 3+ (Neg); Nitrite, Urine Neg (Neg); Protein, Urine 4+ (Neg); Urobilinogen, Urine NORM (Normal)
[2020-11-25 22:07] LABS: Appearance, Urine Turbid (Clear); Color, Urine Yellow (P-Yellow)
[2020-11-25 22:07] LABS: SARS-Cov-2 (COVID-19) PCR, MMC NEGATIVE (NEGATIVE)
[2020-11-25 22:08] LABS: Amorphous Heavy (0-Heavy); Bacteria Many /hpf; Red Blood Cells, Urine 25-50 /hpf (0-2); Squamous Epithelial Cells Not Seen /hpf (Few); White Blood Cells, Urine TNTC /hpf (0-5)
[2020-11-25] MEDS ORDERED: CEFP200 PO (22:12)
== END 2020-11-25 23:24 | disposition home or self-care (01) ==
LOC: ER 19:35
PROVIDERS: Emergency Medicine
DX: N39.0 Urinary tract infection, site not specified (principal); F03.90 Unspecified dementia, unspecified severity, without behavioral disturbance, psychotic disturbance, mood disturbance, and anxiety; Z79.899 Other long term (current) drug therapy; Z20.822 Contact with and (suspected) exposure to COVID-19
CPT/HCPCS: 71045; 80048; 81001; 85025; 87086; 96365; 99285-25; J0696; P9612; U0004

== ENCOUNTER 2021-01-23 21:34 | Emergency (ER) | payer MEDICARE ==
[~2021-01-23] VITALS: Ht 165.1 cm; Wt 70.3 kg
[~2021-01-23 21:34] MED LIST changes: +CEFP200 PO; +Cefpodoxime Pr200 MG PO; +PRILOSEC OTC20 MG PO
== END 2021-01-24 00:14 | disposition home or self-care (01) ==
LOC: ER 21:34
DX: S01.81XA Laceration without foreign body of other part of head, initial encounter (principal); Z23 Encounter for immunization; W18.30XA Fall on same level, unspecified, initial encounter
CPT/HCPCS: 70450; 90714; 99283-25

== ENCOUNTER 2021-04-24 15:30 | Inpatient (IN) | payer MEDICARE ==
[~2021-04-24] VITALS: Ht 167.6 cm; Wt 60.3 kg
[2021-04-24 15:55] LABS: Source, Urine Straight Cath
[2021-04-24 15:58] LABS: BASOPHILS ABSOLUTE AUTO 0.02 K/mm3 (0.00-0.23); BASOPHILS PERCENT AUTO 0 % (0-2); EOSINOPHILS PERCENT AUTO 0 % (0-6); Hematocrit 52.1 % (33.0-51.0); Hemoglobin 16.7 g/dL (11.5-16.0); IMMATURE GRAN ABSOLUTE AUTO 0.01 K/mm3 (0.00-0.10); IMMATURE GRAN PERCENT AUTO 0 % (0-1); LYMPHOCYTES ABSOLUTE AUTO 0.67 K/mm3 (0.84-5.20); LYMPHOCYTES PERCENT AUTO 15 % (21-46); MONOCYTES ABSOLUTE AUTO 0.99 K/mm3 (0.16-1.47); MONOCYTES PERCENT AUTO 22 % (4-13); Mean Corpuscular HGB 28.3 pg (26.0-34.0); Mean Corpuscular HGB Conc 32.1 g/dL (31.5-36.5); Mean Corpuscular Volume 88 fL (80-100); Mean Platelet Volume 11.6 fL (9.1-12.4); NEUTROPHILS ABSOLUTE AUTO 2.79 K/mm3 (1.96-9.15); NEUTROPHILS PERCENT AUTO 62 % (41-73); Platelet Count 195 K/mm3 (150-400); RDW Coefficient Variation 15.4 % (11.7-14.2); RDW Standard Deviation 50.5 fL (35.1-46.3); White Blood Cell Count 4.48 K/mm3 (4.00-11.30)
[2021-04-24 16:16] LABS: Appearance, Urine Cloudy (Clear); Bilirubin, Urine Neg (Neg); Blood, Urine 4+ (Neg); Color, Urine Brown (P-Yellow); Glucose Qualitative, Urine Neg (Neg); Ketones, Urine 1+ (Neg); Leukocyte Esterase, Urine 1+ (Neg); Nitrite, Urine Pos (Neg); Protein, Urine 4+ (Neg); Specific Gravity, Urine 1.015 (1.003-1.022); Urobilinogen, Urine NORM (Normal)
[2021-04-24 16:17] LABS: Red Blood Cells, Urine 25-50 /hpf (0-2); Squamous Epithelial Cells Few /hpf (Few)
[2021-04-24 16:18] LABS: Amorphous Heavy (0-Heavy); Bacteria Many /hpf; Mucus Light (0-Heavy)
[2021-04-24 16:18] LABS: Alanine Aminotransfer (ALT/SGP 17 U/L (12-78); Albumin, Blood 3.2 g/dL (3.4-5.0); Alk Phos 81 U/L (50-136); Anion Gap 6 mmol/L (6-16); Aspartate Aminotrans (AST/SGOT 19 U/L (12-37); Bilirubin, Total 0.5 mg/dL (0.1-1.0); Blood Urea Nitrogen 10 mg/dL (8-24); Bun/Creatinine Ratio 11.8 (12.0-20.0); CO2, Blood 28 mmol/L (21-32); Calcium, Blood 8.7 mg/dL (8.5-10.1); Chloride, Blood 107 mmol/L (98-108); Creatinine, Blood 0.85 mg/dL (0.40-1.00); Ethanol (Alcohol), Blood, Med <3 mg/dL; Globulin, Blood 3.3 g/dL (2.2-4.0); Glomerular Filtration Rate >60 (60-); Glucose, Blood 100 mg/dL (70-99); Potassium, Blood 3.7 mmol/L (3.5-5.5); Sodium, Blood 141 mmol/L (136-145); Total Protein, Blood 6.5 g/dL (6.4-8.2)
[2021-04-24 16:30] LABS: U Amphetamine Screen Not Detected; U Barbituate Screen Not Detected; U Benzodiazapine Screen Not Detected; U Buprenorphine Screen Not Detected; U Cannabinoids Screen Not Detected; U Cocaine Screen Not Detected; U Methadone Screen Not Detected; U Methamphetamine Screen Not Detected; U Opiates Screen Not Detected; U Oxycodone Screen Not Detected; U Phencyclidine Screen Not Detected; U Propoxyphene Screen Not Detected
--- NOTE | 2021-04-25 05:06 | NUR ---
SHIFT SUMMARY Pt admitted to room 345 from ER this shift. Pt confused, oriented to self only. Pt will speak occasionally, speech clear, hard of hearing. Pt has L sided weakness and slight facial droop, unable to complete full neuro assess due to pt not following commands. Pt incontinent of urine, urine with strong odor, neida-care done and pt wearing brief. Abx's given in ER and IVF infusing per orders. Pt pulled out 1 IV in L A/C, restarted IV in the L hand. VSS, afebrile, skin intact. Pt yelling out at times when she first arrived to room, but then rested calmly remaining part of shift. Pt repositioned for comfort, anticipate d/c when medically stable.
--- NOTE | 2021-04-25 11:55 | NUR ---
Called to room as son has arrived. Son completed MRI paperwork. Attempted to engage pt's son, Thaddeus in a conversation re: care planning, goals and a code status. Thaddeus appeared quite fidgety during the brief time he was in patient's room (about 5 minutes). He phone was ringing and he stated "I have to go do something, I'll be back later." Before he left he did state that he is his mother's caregiver and that she gets UTIs about once about every 6 months. When asked if they had ever talked about planning for future care or code status he stated no but that he would like some help with that. He also stated "She wants to live." This typewriter assembler felt that this was not the appropriate time to discuss advanced care planning and code status. Will plan to meet with Thaddeus when he returns later.
--- NOTE | 2021-04-25 16:43 | NUR ---
SHIFT SUMMARY: PATIENT RECEIVED MRI OF HEAD TODAY. WAITING FOR RESULTS. SON VISITED X 2 TODAY. PALLIATIVE CARE ATTEMPTS TO MEET WITH SON ARE UNSUCCESSFUL HE IMMEDIATELY LEAVES WHEN TOÑA MARKS COMES INTO ROOM SAYING HE HAS THINGS HE HAS TO DO. SON RETURNS APPROX 4:30 PM AND PALLIATIVE CARE UNAVAILABLE AT THAT TIME. PATIENT HAS ONE MITT ON RIGHT HAND TO ASSIST HER IN NOT PULLING OUT IV ON LEFT HAND 22 GAUGE TO LEFT THUMB. NUMEROUS ATTEMPTS BY MULTIPLE RN'S INCLUDING POWERGLIDE ATTEMP ARE UNSUCCESSFUL. ER NURSE VENESSA COMES TO ROOM AND IS SUCCESSFUL WITH IV TO THUMB. IV IS WRAPPED IN COBAN AND PADDING TO ASSIST PATIENT. PER SPEECH THERAPY PATIENT CAN HAVE THIN LIQUIDS AND PUREED DIET. PATIENT ATE APPLE JUICE AND PUDDING TODAY AND WAS ABLE TO SWALLOW WITHOUT DIFFICULTY. SHE IS RECEIVING FLUIDS AT 75ML/HR IV IS 22 GAUGE AND PATIENTS VEINS ARE FRAGILE. IAM QUEZADA RN
--- NOTE | 2021-04-26 05:03 | NUR ---
SHIFT SUMMARY Pt has been awake the majority of the shift, calling out frequently "help me". Pt oriented to self only, continues to try to pull off mitt on R hand and also immediately tries to pull at IV site when mitt removed to check circulation. Pt's attends changed at least every 2 hrs during the night due to incontinence. Pt having urgency with urination, neida-care done with each incontinence and cream applied to perineum. Dr. Pace notified of positive blood culture result, pt currently receiving IV Rocephin, no changes made to abx's. also notified of pt calling out frequently when incontinent and inability to sleep. New orders received for pyridium daily x 3 and melatonin prn insomnia. Pt josep po but states "that's enough" after only 1-2 sips of fluid, so limited oral intake at this time. IVF infusing per orders. VSS, afebrile, repositioned for comfort q 2 hrs. Anticipate d/c when medically stable.
--- NOTE | 2021-04-26 17:14 | NUR ---
PT AOX1 AND CONTINUES TO PULL AT HER IV AND CALL OUT. PT IS COOPERATIVE OF CARE, BUT DOES NOT KNOW WHAT IS GOING ON. PT IS INCONTENT AND HAS ATTENDS IN PLACE. BED ALARM IS IN PLACE AND NO DISTRESS NOTED WILL CONTINUE TO MONITOR.
--- NOTE | 2021-04-27 05:45 | NUR ---
SHIFT SUMMARY PATIENT ALERT AND ORIENTED X2. HAD NO COMPLAINTS OF PAIN OR SHORTNESS OF BREATH. SPIT OUT ALL MEDICATIONS OFFERED TO HER. NO ACUTE ISSUES NOTED OVERNIGHT. BED IN LOWEST POSITION WITH WHEELS LOCKED AND ALARM ON. MITT RESTRAINT STILL IN PLACE. CALL LIGHT WITHIN REACH. REPORT GIVEN TO ONCOMING RN.
--- NOTE | 2021-04-27 17:31 | NUR ---
NO ACUTE CHANGES AT THIS TIME. PT IS AOX1 AND COOPERATIVE OF CARE. PT RESTING IN BED. PT IS EASIER TO CHANGE IN BED WITH TWO PEOPLE SHE GET NERVOUS BEING ROLLED AND THINKS SHE WILL FALL OUT OF BED. NO DISTRES NOTED PT CONTINUES TO WANT PULL IV AND MITT ON R HAND IS STILL NEEDED. WILL CONTINUE MONITOR.
[2021-04-28 05:56] LABS: Anion Gap 5 mmol/L (6-16); Blood Urea Nitrogen 5 mg/dL (8-24); Bun/Creatinine Ratio 11.2 (12.0-20.0); CO2, Blood 26 mmol/L (21-32); Calcium, Blood 7.7 mg/dL (8.5-10.1); Chloride, Blood 111 mmol/L (98-108); Creatinine, Blood 0.45 mg/dL (0.40-1.00); Glomerular Filtration Rate >60 (60-); Glucose, Blood 90 mg/dL (70-99); Phosphorus, Blood 2.5 mg/dL (2.5-4.9); Potassium, Blood 3.3 mmol/L (3.5-5.5); Sodium, Blood 142 mmol/L (136-145)
--- NOTE | 2021-04-28 17:54 | NUR ---
SHIFT SUMMARY PT AxOx2. PLEASANT AND COOPERATIVE WITH CARE. R MITT RESTRAINT REMOVED TODAY AFTER IV FLUIDS DC'D. PT HAS NOT TRIED TO REMOVE IV SINCE RESTRAINT REMOVAL. PT APPETITE IMPROVED TODAY. SEEMS TO BE PARTICULAR ABOUT NOT EATING FOODS SHE DOESN'T LIKE, OTHERWISE, ATE AND DRANK 50% OR MORE OF MEALS. VITALS REVIEWED. PT CURRENTLY RESTING IN BED WITH CALL LIGHT IN REACH. PT DENIES PAIN OR ANY NEEDS AT THIS TIME.
--- NOTE | 2021-04-29 05:28 | NUR ---
Elderly female with dementia & UTI continues with very poor overall oral intake of food & fluids bites & sips only with assist & encouragement. Advanced dementia PT spits out anything with texture. She hollers out help me repeatedly with no specific needs. Incont of urine, does not drink enough to meet body requirements. Indicated pain with touch to lower extremities but otherwise denies pain. Lives with Son who provides care. DC plan needs to include Son.
[2021-04-29 05:46] LABS: Anion Gap 5 mmol/L (6-16); Blood Urea Nitrogen 6 mg/dL (8-24); Bun/Creatinine Ratio 11.9 (12.0-20.0); CO2, Blood 29 mmol/L (21-32); Chloride, Blood 107 mmol/L (98-108); Creatinine, Blood 0.51 mg/dL (0.40-1.00); Glomerular Filtration Rate >60 (60-); Glucose, Blood 88 mg/dL (70-99); Potassium, Blood 3.5 mmol/L (3.5-5.5); Sodium, Blood 141 mmol/L (136-145)
--- NOTE | 2021-04-29 17:38 | NUR ---
PATIENT IS ALERT AND DISORIENTED. SHE YELLS OUT. INCONTINENT OF BOWEL AND BLADDER. ATTENDS IN PLACE. Q2H TURNS AND ATTENDS CHANGES. SHE IS A FEEDER. SHE HAS A POOR PO FLUID INTAKE, ONLY SIPS WATER AND ENSURE. SHE WILL EAT IF ENCOURAGED. NO C/O PAIN. UPDATE CALLED TO PATIENT'S SON. WILL CONTINUE TO MONITOR
--- NOTE | 2021-04-30 04:00 | NUR ---
SHIFT SUMMARY 85 YR F ADMITTED ON 04/24/21 FOR UTI AND AMS. FULL CODE. NO ACUTE CHANGES THIS SHIFT. PT SEEMS CONFUSED AND OFTEN CALLS OUT FOR HELP. WHEN REPOMDED TO, SHE CLAIMS THERE IS NOTHING WRONG, THAT SHES COMFORTABLE, NOT IN PAIN, AND THERE IS NOTHING SHE NEDDS. BUT YET SHE WILL CALL OUT FOR HELP CONTINUOUSLY. SHE DOES NOT USE THE CALL LIGHT. SHE SLEPT VERY LITTLE THIS SHIFT, AND REFUSED TO TAKE HER MEDS. THEY WERE CRUSHED AND PUT IN PUDDING WHICH IS HOW SHE HAS TAKEN THEM BEFORE.
[2021-04-30 05:57] LABS: BASOPHILS ABSOLUTE AUTO 0.02 K/mm3 (0.00-0.23); BASOPHILS PERCENT AUTO 1 % (0-2); EOSINOPHILS ABSOLUTE AUTO 0.03 K/mm3 (0.00-0.68); EOSINOPHILS PERCENT AUTO 1 % (0-6); Hemoglobin 16.8 g/dL (11.5-16.0); IMMATURE GRAN ABSOLUTE AUTO 0.01 K/mm3 (0.00-0.10); IMMATURE GRAN PERCENT AUTO 0 % (0-1); LYMPHOCYTES PERCENT AUTO 27 % (21-46); MONOCYTES ABSOLUTE AUTO 0.54 K/mm3 (0.16-1.47); MONOCYTES PERCENT AUTO 16 % (4-13); Mean Corpuscular HGB 28.6 pg (26.0-34.0); Mean Corpuscular HGB Conc 32.9 g/dL (31.5-36.5); Mean Corpuscular Volume 87 fL (80-100); Mean Platelet Volume 11.3 fL (9.1-12.4); NEUTROPHILS ABSOLUTE AUTO 1.83 K/mm3 (1.96-9.15); NEUTROPHILS PERCENT AUTO 55 % (41-73); Platelet Count 127 K/mm3 (150-400); RDW Coefficient Variation 14.7 % (11.7-14.2); RDW Standard Deviation 47.2 fL (35.1-46.3); Red Blood Cell Count 5.87 M/mm3 (3.80-5.20); White Blood Cell Count 3.33 K/mm3 (4.00-11.30)
[2021-04-30 06:21] LABS: Anion Gap 7 mmol/L (6-16); Blood Urea Nitrogen 5 mg/dL (8-24); Bun/Creatinine Ratio 11.3 (12.0-20.0); CO2, Blood 26 mmol/L (21-32); Calcium, Blood 8.5 mg/dL (8.5-10.1); Chloride, Blood 106 mmol/L (98-108); Creatinine, Blood 0.44 mg/dL (0.40-1.00); Glomerular Filtration Rate >60 (60-); Glucose, Blood 89 mg/dL (70-99); Potassium, Blood 3.5 mmol/L (3.5-5.5); Sodium, Blood 139 mmol/L (136-145)
--- NOTE | 2021-04-30 16:01 | NUR ---
NO ACUTE CHANGES AT THIS TIME. PT AOX1. ENCOURAGING TO DRINK FLUIDS. IN BED RESTING, TURNS Q2H. PER ST PATIENT ON BASE LINE, WILL CONTINUE ON PUREE DIET AND THIN LIQUIDS. C/O OF GENERALIZED PAIN, TYLENOL ADMINISTRATED ORDERED AND EFFECTIVE. WILL CONTINUE TO [place].
[2021-05-01 05:08] LABS: BASOPHILS ABSOLUTE AUTO 0.01 K/mm3 (0.00-0.23); BASOPHILS PERCENT AUTO 0 % (0-2); EOSINOPHILS ABSOLUTE AUTO 0.05 K/mm3 (0.00-0.68); EOSINOPHILS PERCENT AUTO 2 % (0-6); Hematocrit 45.2 % (33.0-51.0); Hemoglobin 14.7 g/dL (11.5-16.0); IMMATURE GRAN ABSOLUTE AUTO 0.01 K/mm3 (0.00-0.10); IMMATURE GRAN PERCENT AUTO 0 % (0-1); LYMPHOCYTES ABSOLUTE AUTO 0.77 K/mm3 (0.84-5.20); LYMPHOCYTES PERCENT AUTO 30 % (21-46); MONOCYTES ABSOLUTE AUTO 0.52 K/mm3 (0.16-1.47); MONOCYTES PERCENT AUTO 20 % (4-13); Mean Corpuscular HGB 27.9 pg (26.0-34.0); Mean Corpuscular HGB Conc 32.5 g/dL (31.5-36.5); Mean Corpuscular Volume 86 fL (80-100); Mean Platelet Volume 11.7 fL (9.1-12.4); NEUTROPHILS ABSOLUTE AUTO 1.22 K/mm3 (1.96-9.15); NEUTROPHILS PERCENT AUTO 47 % (41-73); Platelet Count 148 K/mm3 (150-400); RDW Standard Deviation 47.3 fL (35.1-46.3); Red Blood Cell Count 5.27 M/mm3 (3.80-5.20); White Blood Cell Count 2.58 K/mm3 (4.00-11.30)
[2021-05-01 05:20] LABS: Anion Gap 4 mmol/L (6-16); Blood Urea Nitrogen 11 mg/dL (8-24); Bun/Creatinine Ratio 21.2 (12.0-20.0); CO2, Blood 29 mmol/L (21-32); Calcium, Blood 8.2 mg/dL (8.5-10.1); Chloride, Blood 107 mmol/L (98-108); Creatinine, Blood 0.52 mg/dL (0.40-1.00); Glomerular Filtration Rate >60 (60-); Glucose, Blood 92 mg/dL (70-99); Potassium, Blood 3.6 mmol/L (3.5-5.5); Sodium, Blood 140 mmol/L (136-145)
--- NOTE | 2021-05-01 06:36 | NUR ---
Patient is alert and oriented x1 to self only. Patient q2 turns completed. No signs of distress. Patient states she is in pain on her back, PRN pain medication given. Patient spits out crushed pills and pudding last night. Patient is incontinent in urine. Melatonin given to help her sleep, she has a hard time sleeping. Patient slept most of the night. Bed alarm on. call light within reach.
--- NOTE | 2021-05-01 10:55 | NUR ---
Received referral from nurse care provider (Sky Doherty) on 04/25/2021. Patient is to discharge with orders for home health and elected [facility]. Patient was admitted to [facility] on 04/24/2021 due to altered mental status. Spoke with patient's son (Thaddeus Coats) yesterday- 04/30/2021 evening to further discuss the above. Per patient's son the patient does not currently have a PCP as previous PCP is no longer in network with patient's insurance. Reached out this morning to [facility] ([place]) to further discuss the above. Clinic states that patient has not been seen in roughly a year, and only other provider available is also not in network. As such, patient does not have a PCP to follow for home health orders and will need to establish care with an in network provider who will need to make the referral for home health services. Attempted to reach patient's son this morning at 0813. However, patient's son did not answer. Sent patient's son a secure email regarding the above. Nurse care provider was CC'd on email. No further interventions Priyanka Padron Referral Liaison
--- NOTE | 2021-05-01 17:48 | NUR ---
NO ACUTE CHANGES AT THIS TIME. PT AOX1. ENCOURAGING TO DRINK FLUIDS. IN BED RESTING, TURNS Q2H, LOW B/P, DR. MOSQUERA AWARE. PATIENT WILL CONTINUE ON PUREE DIET/THIN LIQUIDS.
--- NOTE | 2021-05-02 03:59 | NUR ---
Patient Alert and disoriented, she yells out help when turning. She is Q2 turns completed. She is encourage with fluid intake. No complaint of pain at this time. Melatonin given, she slept most of the shift. No acute changes noted, we will continue with monitoring patient.
[2021-05-02 05:13] LABS: BASOPHILS ABSOLUTE AUTO 0.02 K/mm3 (0.00-0.23); BASOPHILS PERCENT AUTO 1 % (0-2); EOSINOPHILS ABSOLUTE AUTO 0.04 K/mm3 (0.00-0.68); EOSINOPHILS PERCENT AUTO 2 % (0-6); Hematocrit 45.2 % (33.0-51.0); Hemoglobin 14.4 g/dL (11.5-16.0); IMMATURE GRAN ABSOLUTE AUTO 0.01 K/mm3 (0.00-0.10); IMMATURE GRAN PERCENT AUTO 0 % (0-1); LYMPHOCYTES ABSOLUTE AUTO 0.61 K/mm3 (0.84-5.20); LYMPHOCYTES PERCENT AUTO 24 % (21-46); MONOCYTES PERCENT AUTO 20 % (4-13); Mean Corpuscular HGB Conc 31.9 g/dL (31.5-36.5); Mean Corpuscular Volume 88 fL (80-100); Mean Platelet Volume 11.3 fL (9.1-12.4); NEUTROPHILS ABSOLUTE AUTO 1.33 K/mm3 (1.96-9.15); NEUTROPHILS PERCENT AUTO 53 % (41-73); Platelet Count 155 K/mm3 (150-400); RDW Standard Deviation 48.6 fL (35.1-46.3); Red Blood Cell Count 5.15 M/mm3 (3.80-5.20); White Blood Cell Count 2.51 K/mm3 (4.00-11.30)
[2021-05-02 05:44] LABS: Anion Gap 3 mmol/L (6-16); Blood Urea Nitrogen 10 mg/dL (8-24); Bun/Creatinine Ratio 17.2 (12.0-20.0); CO2, Blood 33 mmol/L (21-32); Calcium, Blood 8.6 mg/dL (8.5-10.1); Chloride, Blood 105 mmol/L (98-108); Creatinine, Blood 0.58 mg/dL (0.40-1.00); Glomerular Filtration Rate >60 (60-); Glucose, Blood 93 mg/dL (70-99); Potassium, Blood 3.5 mmol/L (3.5-5.5); Sodium, Blood 141 mmol/L (136-145)
--- NOTE | 2021-05-02 17:48 | NUR ---
SHIFT SUMMARY: PATIENT MEDICAL CONDITION STABLE. COOPERATIVE WITH CARE AND MEDICATION. NO SOB, NO DISTRESS, DENIES PAIN. CONTINUES ON PUREE DIET WITH THIN LIQUIDS. ENCOURARING TO PO INTAKE.
--- NOTE | 2021-05-02 18:08 | NUR ---
Assessed pt today, she did not appear to be in any distress. She answered "yes" to any of my questions. I was able to feed her a cup of pudding, and she told me on the last bite, "that's enough". I spoke to her son Thaddeus this evening, and he reports he plans for her to return home, and he realizes her dementia is advancing. I asked if he was familiar with home hospice, and he was not. We talked about it, and he stated it sounds like "Exactly the help" he needs. He asked if we could discuss further tomorrow, as he is working with his boat carpenter mechanic this evening. I tell him I will not be here, but someone will call him. I then reported this to Dr. Gaffney, who said he would like to discuss this with the son Thaddeus tomorrow, and Dr. Gaffney states this would be a very appropriate patient for hospice. Thaddeus did state he was familiar with [facility] from the past, and when I presented him the 3 options, he states [facility] would be his first choice.
--- NOTE | 2021-05-03 05:46 | NUR ---
Patient had some episode of vomiting last night. Medicated per EMAR. She is resting and stable at this time. No other events occur. We are monitoring patient.
[2021-05-03 07:21] LABS: BASOPHILS ABSOLUTE AUTO 0.01 K/mm3 (0.00-0.23); BASOPHILS PERCENT AUTO 0 % (0-2); EOSINOPHILS ABSOLUTE AUTO 0.02 K/mm3 (0.00-0.68); EOSINOPHILS PERCENT AUTO 0 % (0-6); Hematocrit 51.5 % (33.0-51.0); Hemoglobin 16.5 g/dL (11.5-16.0); IMMATURE GRAN ABSOLUTE AUTO 0.02 K/mm3 (0.00-0.10); IMMATURE GRAN PERCENT AUTO 0 % (0-1); LYMPHOCYTES ABSOLUTE AUTO 0.37 K/mm3 (0.84-5.20); LYMPHOCYTES PERCENT AUTO 8 % (21-46); MONOCYTES ABSOLUTE AUTO 0.62 K/mm3 (0.16-1.47); MONOCYTES PERCENT AUTO 14 % (4-13); Mean Corpuscular HGB 27.9 pg (26.0-34.0); Mean Corpuscular Volume 87 fL (80-100); Mean Platelet Volume 11.2 fL (9.1-12.4); NEUTROPHILS ABSOLUTE AUTO 3.49 K/mm3 (1.96-9.15); NEUTROPHILS PERCENT AUTO 77 % (41-73); Platelet Count 185 K/mm3 (150-400); RDW Standard Deviation 47.8 fL (35.1-46.3); Red Blood Cell Count 5.92 M/mm3 (3.80-5.20); White Blood Cell Count 4.53 K/mm3 (4.00-11.30)
--- NOTE | 2021-05-03 11:42 | NUR ---
Spoke with Dr Gaffney earlier this AM and discussed case. Pt's son may benefit from discussion regarding considering comfort care and hospice. Spoke with Primary RN Lary and discussed case. Pt resting in bed and does not respond verbally. Pt does open her eyes and holds this RN's hand. Offered therapeutic touch and voice. Pt appears comfortable with no S/S of distress at this time. Attempted to call Pt's son Thaddeus with no answer. No voicemail established to leave message. Will attempt to contact son at a later time.
--- NOTE | 2021-05-03 17:12 | NUR ---
SHIFT SUMMARY PT AOX1; RED AREA ON BUTTOCKS; MEPELEX INTACT. INCONTINENT. ENCOURAGED DRINKING FLUIDS TODAY. PT HAS NO APPETITE. NO OTHER ACUTE CHANGES THIS SHIFT. DENIES PAIN OR CP. BED IS IN THE LOWEST POSITION AND CALL LIGHT WITHIN REACH
--- NOTE | 2021-05-04 04:29 | NUR ---
MOTOR VEHICLE ESCORT DRIVER SUMMARY AWAKE AT INTERVALS, USUALLY CALLING OUT "HELP ME...HELP ME.." STAFF ASSESSED PT, REPOSITIONED AND CHANGED HER DUE TO INCONT. CURRENTLY RESTING QUIETLY WITH CALL LIGHT IN REACH.
[2021-05-04 04:37] LABS: BASOPHILS ABSOLUTE AUTO 0.02 K/mm3 (0.00-0.23); BASOPHILS PERCENT AUTO 1 % (0-2); EOSINOPHILS ABSOLUTE AUTO 0.02 K/mm3 (0.00-0.68); EOSINOPHILS PERCENT AUTO 1 % (0-6); Hemoglobin 14.6 g/dL (11.5-16.0); IMMATURE GRAN ABSOLUTE AUTO 0.01 K/mm3 (0.00-0.10); IMMATURE GRAN PERCENT AUTO 0 % (0-1); LYMPHOCYTES ABSOLUTE AUTO 0.82 K/mm3 (0.84-5.20); LYMPHOCYTES PERCENT AUTO 25 % (21-46); MONOCYTES PERCENT AUTO 18 % (4-13); Mean Corpuscular HGB 28.2 pg (26.0-34.0); Mean Corpuscular HGB Conc 32.4 g/dL (31.5-36.5); Mean Corpuscular Volume 87 fL (80-100); NEUTROPHILS ABSOLUTE AUTO 1.87 K/mm3 (1.96-9.15); NEUTROPHILS PERCENT AUTO 56 % (41-73); Platelet Count 192 K/mm3 (150-400); RDW Standard Deviation 48.4 fL (35.1-46.3); Red Blood Cell Count 5.17 M/mm3 (3.80-5.20); White Blood Cell Count 3.34 K/mm3 (4.00-11.30)
[2021-05-04 05:05] LABS: Anion Gap 5 mmol/L (6-16); Blood Urea Nitrogen 12 mg/dL (8-24); Bun/Creatinine Ratio 22.7 (12.0-20.0); CO2, Blood 31 mmol/L (21-32); Calcium, Blood 8.4 mg/dL (8.5-10.1); Chloride, Blood 104 mmol/L (98-108); Creatinine, Blood 0.53 mg/dL (0.40-1.00); Glomerular Filtration Rate >60 (60-); Glucose, Blood 98 mg/dL (70-99); Potassium, Blood 3.3 mmol/L (3.5-5.5); Sodium, Blood 140 mmol/L (136-145)
--- NOTE | 2021-05-04 08:41 | NUR ---
Spoke with Pt's son Thaddeus by phone. Discussed hospice and comfort care options. Educated on comfort care philosophy with V/U made by Thaddeus. Thaddeus would like to move forward with comfort care. Discussed hospice agencies to choose from. Thaddeus reports he will do some research and let staff know his decision later this afternoon. Pt resting in bed and is pleasantly confused. Pt denies pain at this time. Pt appears comfortable with no S/S of distress at this time. Spoke with Primary RN Chandana and discussed case. Palliative Care will remain available.
--- NOTE | 2021-05-04 09:28 | NUR ---
PT IS AWAKE, DECLINED AM MEDICATIONS. PT APPEARS TO BE COMFORTABLE
--- NOTE | 2021-05-04 14:48 | NUR ---
PT RESTING IN BED APPEARS TO BE COMFORTABLE AT THIS TIME
--- NOTE | 2021-05-04 14:49 | NUR ---
PT AWAKE, ALERT APPEARS TO BE COMFORTABLE BREATHING EASILY ON RA
--- NOTE | 2021-05-04 14:50 | NUR ---
PT AWAKE, ALERT DENIES ANY DISCOMFORT. APPEARS TO BE BREATHING EASILY AT THIS TIME
--- NOTE | 2021-05-04 18:15 | NUR ---
PT APPEARS COMFORTABLE, BREATHING EASILY
--- NOTE | 2021-05-04 18:16 | NUR ---
PT APPEARS TO BE COMFORTABLE. THE PATIENTS SON WAS IN TO VISIT AND ASSITED THE PATIENT WITH HER DINNER. BED ALARM ON NO OTHER CHANGES NOTICED THIS SHIFT
--- NOTE | 2021-05-05 04:29 | NUR ---
SUMMARY: PT REMAINS ON COMFORT CARE MEASURES. SHE'S ABLE TO SPECIFY NEEDS AND ANSWERS MOST Q'S APPROPRIATELY BUT CALLS INTO HALLS FOR ASSIST PRN. ATTENDS CHANGED FOR INCONTINENCE AND MEPILEX TO COCCYX REMAINS C/D/I. TURN SCHEDULE MAINTAINED AND HEEL PROTECTORS IN PLACE. NO ACUTE CHANGES. PT DENIED PAIN AND SLEPT MOST OF NOCTE W/O S/S DISTRESS. WCTM AND REPORT TO DAY RN.
[2021-05-05] MEDS ORDERED: ASPI81CH PO (12:58)
[2021-05-05] MEDS ORDERED: Acetaminophen325 M1 PO (12:58)
[2021-05-05] MEDS ORDERED: ATROPINE SULFATE2 M1 SL (13:00)
[2021-05-05] MEDS ORDERED: AZO CRANBERRY PO (13:01)
[2021-05-05] MEDS ORDERED: DOCUZEN 8.6-501 EACH PO (13:02)
[2021-05-05] MEDS ORDERED: MELA3 PO (13:03)
[2021-05-05] MEDS ORDERED: Ativan1 MG PO (13:03)
[2021-05-05] MEDS ORDERED: HALOPERIDOL2 MG/1 M1 PO (13:03)
[2021-05-05] MEDS ORDERED: ONDA4ODT MM (13:04)
[2021-05-05] MEDS ORDERED: MORP20L SL (13:04)
[2021-05-05] MEDS ORDERED: TRANSDERM-SCOP1 EAC9 TOP (13:05)
--- NOTE | 2021-05-05 17:06 | NUR ---
DISCHARGE PT DISCHARGE HOME WITH HOSPICE, FAMILY TRANSPORTING. HARD COPY SCRIP SENT HOME WITH PT.
== END 2021-05-05 17:05 | disposition hospice, home (50) | DRG 689 ==
LOC: ER 15:30 → MEDS 20:45
PROVIDERS: Family Medicine; Internal Medicine; Physician Assistant; Student in an Organized Health Care Education/Training Program; ADMIT Internal Medicine
DX: N39.0 Urinary tract infection, site not specified (principal); G92.8 Other toxic encephalopathy; Z51.5 Encounter for palliative care; H40.9 Unspecified glaucoma; H91.90 Unspecified hearing loss, unspecified ear; F03.90 Unspecified dementia, unspecified severity, without behavioral disturbance, psychotic disturbance, mood disturbance, and anxiety; R29.810 Facial weakness; E87.6 Hypokalemia; B95.4 Other streptococcus as the cause of diseases classified elsewhere; R60.0 Localized edema; D72.819 Decreased white blood cell count, unspecified; Z90.49 Acquired absence of other specified parts of digestive tract
CPT/HCPCS: 36415; 51701; 70450; 70496; 70498; 70551; 71045; 80048; 80053; 80069; 81001; 83605; 84145; 85025; 87040; 87086; 92526; 92610; 93005; 93010; 93971; 96374-59; 99285-25; A9270; G0480; J0696; J1650; J7030; Q9967

== ENCOUNTER 2021-08-30 23:23 | Emergency (ER) | payer MEDICARE ==
[~2021-08-30] VITALS: Ht 165.1 cm; Wt 63.5 kg
[~2021-08-30 23:23] MED LIST changes: +ASPI81CH PO; +ATROPINE SULFATE2 M1 SL; +AZO CRANBERRY PO; +Acetaminophen325 M1 PO; +Ativan1 MG PO; +DOCUZEN 8.6-501 EACH PO; +HALOPERIDOL2 MG/1 M1 PO; +MELA3 PO; +MORP20L SL; +ONDA4ODT MM; +TRANSDERM-SCOP1 EAC9 TOP
[2021-08-31] MEDS ORDERED: PROM12.5S PR (02:46)
== END 2021-08-31 08:23 | disposition home or self-care (01) ==
LOC: ER 23:23
DX: K92.0 Hematemesis (principal); F03.90 Unspecified dementia, unspecified severity, without behavioral disturbance, psychotic disturbance, mood disturbance, and anxiety; Z79.899 Other long term (current) drug therapy
CPT/HCPCS: 96361; 96374; 96375; 99283; C9113; J2270; J2550; J7030